=== PATIENT | male | born 1955 | race Asian ===

== ENCOUNTER 2018-04-30 07:53 | Day surgery (SDC) | payer OTHER ==
[~2018-04-30] VITALS: Ht 180 cm; Wt 113.4 kg
[2018-04-30] MEDS ORDERED: ATOR10TA PO (08:59)
[2018-04-30] MEDS ORDERED: AMLO10TA2 PO (08:59)
[2018-04-30] MEDS ORDERED: ZYL300 PO (08:59)
[2018-04-30] MEDS ORDERED: COL.6 GT (08:59)
[2018-04-30] MEDS ORDERED: HYDR-3320 PO (09:00)
[2018-04-30] MEDS ORDERED: GEMF-61 PO (09:00)
[2018-04-30] MEDS ORDERED: KETOROLAC 30 MG/ML VIAL ONE (09:07)
[2018-04-30] MEDS ORDERED: LIDOCAINE 2% 100 MG/5 ML UJET TP ONE (09:07)
== END 2018-04-30 10:08 | disposition home or self-care (01) ==
LOC: MDS 07:53 → MMU 07:55 → MDS 10:08
PROVIDERS: ATTEND Internal Medicine Gastroenterology
DX: Z12.11 Encounter for screening for malignant neoplasm of colon (principal); I10 Essential (primary) hypertension; E78.5 Hyperlipidemia, unspecified; E66.9 Obesity, unspecified; Z68.35 Body mass index [BMI] 35.0-35.9, adult; Z72.89 Other problems related to lifestyle; Z98.890 Other specified postprocedural states; Z79.899 Other long term (current) drug therapy
CPT/HCPCS: G0121; J1885